=== PATIENT | male | born 1940 | race Hispanic/Latino ===

== ENCOUNTER 2017-08-10 22:17 | Emergency (ER) | payer OTHER ==
[~2017-08-10 22:17] MED LIST: TRAMADOL50 MG PO
[2017-08-10 22:22] VITALS: BP 98/58
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
[2017-08-10] MEDS ORDERED: AUGMENTIN 500-1 EACH PO (23:42)
== END 2017-08-10 23:45 ==
LOC: ERH 22:17
DX: S01.511A Laceration without foreign body of lip, initial encounter (principal); F10.129 Alcohol abuse with intoxication, unspecified; Y04.8XXA Assault by other bodily force, initial encounter; Y92.9 Unspecified place or not applicable; Y93.89 Activity, other specified

== ENCOUNTER 2017-11-14 07:13 | Emergency (ER) | payer OTHER ==
[~2017-11-14] VITALS: Ht 165.1 cm; Wt 79.4 kg
[~2017-11-14 07:13] MED LIST changes: +AUGMENTIN 500-1 EACH PO
[2017-11-14 07:19] VITALS: BP 155/84
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
[2017-11-14] MEDS ORDERED: KETOCONAZOLE15 GM TOP (07:30)
== END 2017-11-14 07:33 ==
LOC: ERH 07:13
DX: B35.4 Tinea corporis (principal)